=== PATIENT | male | born 1980 | race Caucasian/White ===

== ENCOUNTER 2017-12-12 22:30 | Inpatient (IN) | payer OTHER ==
[~2017-12-12] VITALS: Ht 177.8 cm; Wt 74.0 kg
[~2017-12-12 22:30] MED LIST: CELEXA20 MG PO; CLONAZEPAM2 MG PO; SEROQUEL12.5 MG PO; SEROQUEL50 MG PO; ULTRAM50 MG PO; VYVANSE50 MG PO; VYVANSE60 MG PO; VYVANSE70 MG PO; XANAX2 MG PO
[2017-12-12 23:14] LABS: HEMATOCRIT 40.4 % (38.0-50.0); HEMOGLOBIN 13.6 G/DL (12.5-16.6); MCH 28.2 PG (29.0-34.0); MCHC 33.7 G/DL (30.0-36.0); MCV 83.6 FL (86-99); PLATELET COUNT 187 K/uL (156-360); RBC DIS.WIDTH-CV 13.2 % (11.8-14.6); RBC DIS.WIDTH-SD 39.8 % (39-53); RED BLOOD COUNT 4.83 M/uL (4.00-5.50); WHITE BLOOD COUNT 9.7 K/uL (4.1-10.2)
[2017-12-12 23:24] LABS: CHLORIDE 103 mEq/L (99-109); POTASSIUM 4.1 mEq/L (3.7-5.4); SODIUM 139 mEq/L (136-147)
[2017-12-12 23:26] LABS: GLUCOSE 118 mg/dL (70-99)
[2017-12-12 23:29] LABS: SERUM ETHYL ALCOHOL < 10 mg/dL
[2017-12-12 23:30] LABS: CREATININE 1.3 mg/dL (0.6-1.3); GFR ESTIMATE (CALCULATED) > 59 mL/min/ (58.99-99999)
[2017-12-12 23:31] LABS: UREA NITROGEN (BUN) 23 mg/dL (9-23)
[2017-12-12 23:39] LABS: AMPHETAMINE NEGATIVE (500 ng/mL); BARBITURATES NEGATIVE (200 ng/mL); BENZODIAZEPINES PRESUMPTIVE POSITIVE (150 ng/mL); BUPRENORPHINE NEGATIVE (10 ng/mL); COCAINE NEGATIVE (150 ng/mL); METHADONE NEGATIVE (200 ng/mL); METHAMPHETAMINE PRESUMPTIVE POSITIVE (500 ng/mL); OPIATES (MORPHINE) NEGATIVE (100 ng/mL); OXYCODONE NEGATIVE (100 ng/mL); PHENCYCLIDINE NEGATIVE (25 ng/mL); PROPOXYPHENE NEGATIVE (300 ng/mL); THC CANNABINOIDS NEGATIVE (50 ng/mL); TRICYCLIC ANTIDEPRESSANTS NEGATIVE (300 ng/mL)
[2017-12-13] MEDS ORDERED: SEROQUEL50 MG PO (01:06)
[2017-12-13] MEDS ORDERED: BACTRIM,SEPT1 TABLET PO (01:07)
[2017-12-13] MEDS ORDERED: CEPHALEXIN500 MG PO (01:08)
[2017-12-13 01:27] LABS: BENZODIAZEPINES, URINE SCREEN Negative (200 ng/mL)
[2017-12-13 01:35] VITALS: BP 109/59
[2017-12-13 07:28] VITALS: BP 103/59
[2017-12-13 11:53] LABS: ALBUMIN 3.6 G/DL (3.2-4.8); ALKALINE PHOSPHATASE 98 IU/L (3-129); ALT (GPT) 164 IU/L (3-49); AST (GOT) 90 IU/L (2-34); DIRECT BILIRUBIN 0.1 mg/dL (0.0-0.3); TOTAL BILIRUBIN 0.3 MG/DL (0.0-1.0); TOTAL PROTEIN 7.1 G/DL (6.4-8.3)
[2017-12-13 15:28] VITALS: BP 103/58
[2017-12-14 07:33] VITALS: BP 109/72
[2017-12-14 15:30] VITALS: BP 107/74
[2017-12-15 07:46] VITALS: BP 97/56
[2017-12-15 15:25] VITALS: BP 114/68
[2017-12-16 07:28] VITALS: BP 91/52
[2017-12-16 15:25] VITALS: BP 92/55
[2017-12-17 06:50] VITALS: BP 88/50
[2017-12-17] MEDS ORDERED: CEPHALEXIN500 MG PO (11:03)
[2017-12-17] MEDS ORDERED: CELEXA20 MG PO (11:03)
[2017-12-17] MEDS ORDERED: SEROQUEL50 MG PO (11:03)
== END 2017-12-17 11:50 | disposition home or self-care (01) | DRG 885 ==
LOC: EME 22:30 → EDOF 12-13 00:20 → 1WEST 12-13 00:20 → ENRESERV 12-13 01:07 → 1WEST 12-13 01:23
PROVIDERS: Psychiatry & Neurology Psychiatry
DX: F33.1 Major depressive disorder, recurrent, moderate (principal); R45.851 Suicidal ideations; S81.801D Unspecified open wound, right lower leg, subsequent encounter; F15.10 Other stimulant abuse, uncomplicated; F43.10 Post-traumatic stress disorder, unspecified; Z59.0 Homelessness; Z87.891 Personal history of nicotine dependence
CPT/HCPCS: 80048; 80076; 84999; 85027; 90839; 97150 GO; 97165 GO; 99281; 99285; G0480